=== PATIENT | male | born 1965 | race Caucasian/White ===

== ENCOUNTER 2024-08-28 05:31 | Emergency (ER) | payer SELFPAY ==
[~2024-08-28] VITALS: Ht 177.8 cm; Wt 84.0 kg
[2024-08-28] MEDS: IBUPROFEN 600MG TABLET PO ONE (05:45)
[2024-08-28 05:48] VITALS: BP 151/95; RESP 20; TEMP 97.8; O2SAT 98
[2024-08-28 05:55] VITALS: PULSE 92
== END 2024-08-28 08:50 | disposition home or self-care (01) ==
LOC: ER 05:31
DX: S82.62XA Displaced fracture of lateral malleolus of left fibula, initial encounter for closed fracture (principal); W18.39XA Other fall on same level, initial encounter; Y93.89 Activity, other specified; Y92.89 Other specified places as the place of occurrence of the external cause; Y99.8 Other external cause status
CPT/HCPCS: 73610; 12002; 99283; Z7610 ×3